=== PATIENT | female | born 1955 | race Two or more races ===

== ENCOUNTER 2021-10-13 14:25 | Emergency (ER) | payer OTHER ==
[~2021-10-13] VITALS: Ht 152.4 cm; Wt 45.4 kg
[2021-10-13] MEDS ORDERED: CLONAZEPAM0.5 MG PO (14:35)
[2021-10-13] MEDS ORDERED: GLIPIZIDE XL5 MG (14:35)
== END 2021-10-13 23:11 | disposition home or self-care (01) ==
LOC: ER 14:25
DX: K59.09 Other constipation (principal)

== ENCOUNTER → 2021-10-18 | Emergency (ER) | payer OTHER ==
[~2021-10-18] VITALS: Ht 172.7 cm; Wt 59.0 kg
[~2021-10-18] MED LIST: CLONAZEPAM0.5 MG PO; GLIPIZIDE XL5 MG
== END | disposition home or self-care (01) ==
LOC: ER 11:39
DX: E86.0 Dehydration (principal); E87.0 Hyperosmolality and hypernatremia; E87.8 Other disorders of electrolyte and fluid balance, not elsewhere classified; E46 Unspecified protein-calorie malnutrition; R41.82 Altered mental status, unspecified; R53.1 Weakness; G30.8 Other Alzheimer's disease; F02.80 Dementia in other diseases classified elsewhere, unspecified severity, without behavioral disturbance, psychotic disturbance, mood disturbance, and anxiety; Z03.818 Encounter for observation for suspected exposure to other biological agents ruled out